=== PATIENT | female | born 1975 | race African-American/Black ===

== ENCOUNTER 2018-01-14 04:07 | Emergency (ER) | payer OTHER ==
[~2018-01-14] VITALS: Ht 149.9 cm; Wt 113.0 kg
[~2018-01-14 04:07] MED LIST: FERR-71 PO
[2018-01-14] MEDS ORDERED: ONDANSETRON HCL 4MG/2ML VIAL IV STA (04:48)
[2018-01-14] MEDS ORDERED: SODIUM CHLORIDE 0.9% 1,000 ML IV ONE (04:48)
[2018-01-14] MEDS ORDERED: MORPHINE SULFATE 4 MG/ML CPJ (NOT FOR IM USE) IV STA (04:48)
[2018-01-14] MEDS ORDERED: KETOROLAC 30MG/ML VIAL IV STA (04:48)
[2018-01-14 05:23] LABS: HEMATOCRIT. 36.8 % (36.0-48.0); HEMOGLOBIN. 11.4 g/dL (12.0-16.0); MEAN CORPUSCULAR HEMOGLOBIN 22.4 pg (28.0-32.0); MEAN CORPUSCULAR VOLUME 71.9 fL (81.0-99.0); MEAN PLATELET VOLUME 8.2 fl (7.4-10.4); PLATELET 290 x1000/uL (130-400); RED BLOOD CELL COUNT 5.11 mill/uL (4.2-5.4); RED CELL DISTRIBUTION WIDTH 16.4 % (11.6-14.6)
[2018-01-14 05:27] LABS: CHLORIDE 101 mEq/L (98-107)
[2018-01-14 05:29] LABS: PROTHROMBIN TIME 10.4 sec (9.4-11.6)
[2018-01-14 05:54] LABS: CLARITY URINE CLOUDY (CLEAR); COLOR URINE YELLOW (YELLOW); KETONES URINE NEGATIVE (NEGATIVE); LEUKOCYTE ESTERASE URINE 3+ (NEGATIVE); NITRITE URINE NEGATIVE (NEGATIVE); OCCULT BLOOD URINE 3+ (NEGATIVE); PH URINE 6.5 (4.5-8.0); PROTEIN URINE 2+ (NEGATIVE); SPECIFIC GRAVITY URINE 1.013 (1.005-1.030)
[2018-01-14 05:55] LABS: PLATELET ESTIMATE NORMAL
[2018-01-14 06:48] VITALS: BP 115/67
== END 2018-01-14 06:50 | disposition home or self-care (01) ==
LOC: ER 04:07
DX: N39.0 Urinary tract infection, site not specified (principal); M54.5 Low back pain; I11.0 Hypertensive heart disease with heart failure; I50.9 Heart failure, unspecified; R73.9 Hyperglycemia, unspecified; Z90.49 Acquired absence of other specified parts of digestive tract
CPT/HCPCS: 36415; 80053; 81003; 81025; 83690; 85025; 85610; 87086; 96361; 96374; 96375; 99284; J1885; J2270; J2405; J7030; Z7610

== ENCOUNTER 2018-09-07 05:32 | Emergency (ER) | payer OTHER ==
[~2018-09-07] VITALS: Ht 162.6 cm; Wt 125.0 kg
[2018-09-07] MEDS ORDERED: KETOROLAC 30MG/ML VIAL IV STA (06:32)
[2018-09-07 07:10] LABS: BASOPHILS % 0.5 % (0.0-2.0); EOSINOPHILS % 1.9 % (0.0-5.0); HEMATOCRIT. 35.2 % (36.0-48.0); HEMOGLOBIN. 10.8 g/dL (12.0-16.0); LYMPHOCYTES % 11.5 % (20.0-50.0); MEAN CORPUSCULAR HEMOGLOBIN 21.4 pg (28.0-32.0); MEAN CORPUSCULAR VOLUME 69.6 fL (81.0-99.0); MEAN PLATELET VOLUME 8.2 fl (7.4-10.4); MONOCYTES % 3.9 % (2.0-8.0); NEUTROPHILS % 82.2 % (40.0-76.0); PLATELET 260 x1000/uL (130-400); RED BLOOD CELL COUNT 5.05 mill/uL (4.2-5.4)
[2018-09-07 07:16] LABS: CHLORIDE 104 mEq/L (98-107)
[2018-09-07 07:17] LABS: PROTHROMBIN TIME 9.9 sec (9.1-11.1)
[2018-09-07 08:42] LABS: PLATELET ESTIMATE NORMAL
[2018-09-07 08:46] LABS: CLARITY URINE CLEAR (CLEAR); COLOR URINE YELLOW (YELLOW); KETONES URINE NEGATIVE (NEGATIVE); NITRITE URINE NEGATIVE (NEGATIVE); OCCULT BLOOD URINE NEGATIVE (NEGATIVE); PH URINE 6.5 (4.5-8.0); PROTEIN URINE NEGATIVE (NEGATIVE); SPECIFIC GRAVITY URINE 1.015 (1.005-1.030)
[2018-09-07 08:47] LABS: LEUKOCYTE ESTERASE URINE NEGATIVE (NEGATIVE); UROBILINOGEN URINE 0.2 E.U./dL (0.2-1.0)
[2018-09-07 10:41] VITALS: BP 122/55
== END 2018-09-07 10:47 | disposition home or self-care (01) ==
LOC: ER 05:32
DX: R10.30 Lower abdominal pain, unspecified (principal); I50.9 Heart failure, unspecified; Z87.442 Personal history of urinary calculi; Z79.899 Other long term (current) drug therapy
CPT/HCPCS: 36415; 74176; 80053; 81003; 83690; 84484; 85025; 85610; 93005; 96374; 99284; J1885

== ENCOUNTER 2018-10-05 14:15 | Emergency (ER) | payer OTHER ==
[~2018-10-05] VITALS: Ht 152.4 cm; Wt 92.0 kg
[2018-10-05] MEDS ORDERED: ASPIRIN 81MG TABLET PO ONE (15:30)
[2018-10-05] MEDS ORDERED: FUROSEMIDE 40MG/4ML VIAL IV ONE (15:30)
[2018-10-05] MEDS ORDERED: NITROGLYCERIN OINT 1GM/INCH UDPKT TD ONE (15:30)
[2018-10-05 16:06] LABS: CHLORIDE 106 mEq/L (98-107)
[2018-10-05 16:08] LABS: HEMOGLOBIN. 10.3 g/dL (12.0-16.0); RED BLOOD CELL COUNT 4.89 mill/uL (4.2-5.4)
[2018-10-05 16:09] LABS: BASOPHILS % 0.3 % (0.0-2.0); HEMATOCRIT. 33.9 % (36.0-48.0); LYMPHOCYTES % 11.2 % (20.0-50.0); MEAN CORPUSCULAR VOLUME 69.5 fL (81.0-99.0); MEAN PLATELET VOLUME 7.6 fl (7.4-10.4); MONOCYTES % 6.1 % (2.0-8.0); NEUTROPHILS % 79.4 % (40.0-76.0); PLATELET 270 x1000/uL (130-400); RED CELL DISTRIBUTION WIDTH 17.5 % (11.6-14.6)
[2018-10-05 16:10] LABS: PARTIAL THROMBOPLASTIN TIME 26.2 sec (23.4-31.0)
[2018-10-05 16:12] LABS: HCG SCREEN NEGATIVE
[2018-10-05 16:33] LABS: PLATELET ESTIMATE NORMAL
[2018-10-05] MEDS ORDERED: IOHEXOL-350 100 ML BOTTLE ONE (19:52)
[2018-10-05] MEDS ORDERED: DIPHENHYDRAMINE 50MG/ML VIAL IV PRN (22:15)
[2018-10-05] MEDS ORDERED: ENOXAPARIN 40MG/0.4ML SYR SUBCUT SCH (22:15)
[2018-10-05] MEDS ORDERED: ONDANSETRON HCL 4MG/2ML INJ IV PRN (22:15)
[2018-10-05] MEDS ORDERED: GUAIFENESIN 200MG/10ML SUGAR FREE UDC PO PRN (22:15)
[2018-10-05] MEDS ORDERED: IPRATROPIUM/ALBUTEROL 0.5-3(2.5)MG/3ML NEB INH PRN (22:15)
[2018-10-05] MEDS ORDERED: CLONIDINE 0.1MG TABLET PO PRN (22:15)
[2018-10-05] MEDS ORDERED: MAGNESIUM/ALUMINUM HYDROXIDE/SIMETHICONE 30ML UDC PO PRN (22:15)
[2018-10-05] MEDS ORDERED: ACETAMINOPHEN 325MG TABLET PO PRN (22:15)
[2018-10-06] MEDS ORDERED: SODIUM CHLORIDE 0.9% INJ 3ML FLUSH IVF SCH ×2 (06:00→13:00)
[2018-10-06] MEDS ORDERED: LISINOPRIL 10MG TABLET PO NR (10:00)
[2018-10-06] MEDS ORDERED: FUROSEMIDE 40MG/4ML VIAL IVP NR (10:00)
[2018-10-06] MEDS ORDERED: AMLODIPINE 5MG TABLET PO NR (10:00)
[2018-10-06] MEDS ORDERED: POTASSIUM CHLORIDE 10MEQ TABLET SR PO NR (10:00)
[2018-10-06 12:31] VITALS: BP 150/107
[2018-10-06] MEDS ORDERED: ENOXAPARIN 40MG/0.4ML SYR SUBCUT SCH (13:00)
[2018-10-07] MEDS ORDERED: FUROSEMIDE 40MG/4ML VIAL IVP SCH ×2 (09:00)
[2018-10-07] MEDS ORDERED: POTASSIUM CHLORIDE 10MEQ TABLET SR PO SCH ×2 (09:00)
[2018-10-07] MEDS ORDERED: AMLODIPINE 5MG TABLET PO SCH ×2 (09:00)
[2018-10-07] MEDS ORDERED: LISINOPRIL 10MG TABLET PO SCH ×2 (09:00)
== END 2018-10-06 12:56 | disposition left against medical advice (07) ==
LOC: ER 14:15 → EDBEDREQ 19:33 → ER 10-06 12:56 → CANBEDREQ 10-06 19:11
DX: I11.0 Hypertensive heart disease with heart failure (principal); I50.43 Acute on chronic combined systolic (congestive) and diastolic (congestive) heart failure; E66.01 Morbid (severe) obesity due to excess calories; Z68.39 Body mass index [BMI] 39.0-39.9, adult
CPT/HCPCS: 36415; 71045; 71275; 80053; 81025; 83880; 84484; 84703; 85025; 85379; 85610; 85730; 93005; 96374; 96375; 96376; 99284; J1200; J1940; Q9967; Z7610

== ENCOUNTER 2019-01-16 18:56 | Inpatient (IN) | payer OTHER ==
[~2019-01-16] VITALS: Ht 149.9 cm; Wt 152.4 kg
[2019-01-16 22:38] LABS: CLARITY URINE CLEAR (CLEAR); COLOR URINE ORANGE (YELLOW); KETONES URINE NEGATIVE (NEGATIVE); LEUKOCYTE ESTERASE URINE 1+ (NEGATIVE); NITRITE URINE NEGATIVE (NEGATIVE); OCCULT BLOOD URINE 3+ (NEGATIVE); PH URINE 7.5 (4.5-8.0); PROTEIN URINE NEGATIVE (NEGATIVE); SPECIFIC GRAVITY URINE 1.011 (1.005-1.030); UROBILINOGEN URINE 0.2 E.U./dL (0.2-1.0)
[2019-01-16] MEDS ORDERED: ONDANSETRON HCL 4MG/2ML INJ IV STA (22:47)
[2019-01-16] MEDS ORDERED: MORPHINE SULFATE 4 MG/ML CPJ (NOT FOR IM USE) IV STA (22:47)
[2019-01-16 23:23] LABS: HEMATOCRIT. 34.3 % (36.0-48.0); HEMOGLOBIN. 10.9 g/dL (12.0-16.0); MEAN CORPUSCULAR HEMOGLOBIN 22.1 pg (28.0-32.0); MEAN CORPUSCULAR VOLUME 69.3 fL (81.0-99.0); MEAN PLATELET VOLUME 7.9 fl (7.4-10.4); PLATELET 241 x1000/uL (130-400); RED BLOOD CELL COUNT 4.95 mill/uL (4.2-5.4); RED CELL DISTRIBUTION WIDTH 17.9 % (11.6-14.6)
[2019-01-16 23:29] LABS: CHLORIDE 105 mEq/L (98-107)
[2019-01-16 23:59] LABS: PLATELET ESTIMATE NORMAL
[2019-01-17] MEDS ORDERED: CEFTRIAXONE 1 G PREMIX 50 ML IV NR (00:15)
[2019-01-17 08:00] VITALS: BP 125/68
[2019-01-17] MEDS ORDERED: DOCUSATE SODIUM 100MG CAPSULE PO PRN (09:00)
[2019-01-17] MEDS ORDERED: CLONIDINE 0.1MG TABLET PO PRN (09:00)
[2019-01-17] MEDS ORDERED: ONDANSETRON HCL 4MG/2ML INJ IV PRN (09:00)
[2019-01-17] MEDS ORDERED: GUAIFENESIN 200MG/10ML SUGAR FREE UDC PO PRN (09:00)
[2019-01-17] MEDS ORDERED: MAGNESIUM/ALUMINUM HYDROXIDE/SIMETHICONE 30ML UDC PO PRN (09:00)
[2019-01-17] MEDS ORDERED: ACETAMINOPHEN 325MG TABLET PO PRN (09:00)
[2019-01-17 09:01] VITALS: BP 112/67
[2019-01-17] MEDS: DIPHENHYDRAMINE 50MG/ML VIAL IV PRN ×2 (09:47→21:37)
[2019-01-17 11:07] LABS: PHOSPHORUS 3.2 mg/dL (2.5-4.9)
[2019-01-17] MEDS: HYDROMORPHONE HCL/PF 2MG/ML CPJ IV PRN ×3 (11:26→21:38)
[2019-01-17] MEDS ORDERED: PNEUMOCOCCAL 23-VAL P-SAC VAC 0.5 ML IM ONE (11:30)
[2019-01-17] MEDS ORDERED: INFLUENZA VIRUS VACCINE(AFLURIA) 0.5ML SYR IM ONE (11:45)
[2019-01-17 12:00] VITALS: BP 143/80
[2019-01-17] MEDS: CEFTRIAXONE 1 G PREMIX 50 ML IV SCH (12:36)
[2019-01-17 12:57] LABS: TOTAL IRON BINDING CAPACITY 418 ug/dL (250-450)
[2019-01-17] MEDS ORDERED: AMLO5TAB88 MT (15:44)
[2019-01-17] MEDS ORDERED: IBUP-2030 MT (15:44)
[2019-01-17] MEDS ORDERED: POTA10CA42 MT (15:44)
[2019-01-17] MEDS ORDERED: LISI10TA5 MT (15:44)
[2019-01-17] MEDS ORDERED: FURO40TA5 MT (15:44)
[2019-01-17 16:00] VITALS: BP 152/63
[2019-01-17 16:40] LABS: CREATINE KINASE MB FRACTION 1.2 ng/mL (0.5-3.6)
[2019-01-18] VITALS: BP 165/87
[2019-01-18 01:10] LABS: CREATINE KINASE MB FRACTION 1.5 ng/mL (0.5-3.6)
[2019-01-18 04:00] VITALS: BP 141/62
[2019-01-18 06:50] LABS: HEMATOCRIT. 34.6 % (36.0-48.0); HEMOGLOBIN. 10.8 g/dL (12.0-16.0); MEAN CORPUSCULAR HEMOGLOBIN 21.8 pg (28.0-32.0); MEAN CORPUSCULAR VOLUME 70.1 fL (81.0-99.0); MEAN PLATELET VOLUME 8.3 fl (7.4-10.4); PLATELET 278 x1000/uL (130-400); RED BLOOD CELL COUNT 4.93 mill/uL (4.2-5.4); RED CELL DISTRIBUTION WIDTH 17.9 % (11.6-14.6)
[2019-01-18 06:51] LABS: CHLORIDE 104 mEq/L (98-107)
[2019-01-18 07:02] LABS: LDL CHOLESTEROL 162 mg/dL (5-100)
[2019-01-18 07:04] LABS: HDL CHOLESTEROL 53 mg/dL (40-59)
[2019-01-18 08:00] VITALS: BP 167/87
[2019-01-18 12:00] VITALS: BP 160/88
[2019-01-18] MEDS: CEFTRIAXONE 1 G PREMIX 50 ML IV SCH (12:32)
[2019-01-18 13:08] LABS: PLATELET ESTIMATE NORMAL
[2019-01-18] MEDS ORDERED: ATOR20TA65 MT (13:13)
[2019-01-18] MEDS ORDERED: LEVO750T46 MT (13:15)
[2019-01-18 14:44] VITALS: BP 125/73
[2019-01-18 15:12] LABS: HCG SCREEN NEGATIVE
== END 2019-01-18 16:16 | disposition home or self-care (01) | DRG 463 ==
LOC: ER 19:22 → 6EST 01-17 04:46 → EDBEDREQ 01-17 04:54 → EDBEDREQTM 01-17 04:54 → ENRESERV 01-17 06:15
PROVIDERS: ADMIT Internal Medicine; ATTEND Internal Medicine
DX: N13.6 Pyonephrosis (principal); I11.0 Hypertensive heart disease with heart failure; E44.0 Moderate protein-calorie malnutrition; R65.10 Systemic inflammatory response syndrome (SIRS) of non-infectious origin without acute organ dysfunction; I50.9 Heart failure, unspecified; Z68.44 Body mass index [BMI] 60.0-69.9, adult; N20.0 Calculus of kidney; R73.9 Hyperglycemia, unspecified; D50.9 Iron deficiency anemia, unspecified; Z87.442 Personal history of urinary calculi; Z79.899 Other long term (current) drug therapy
CPT/HCPCS: 36415; 71045; 74176; 80061; 82550; 82553; 82728; 83036; 83540; 83550; 83735; 83880; 84100; 84443; 84484; 84703; 90686; 90732; 93005; 93970; 96365; 96375; 99285; J0696; J1170; J1200; J2270; J2405

== ENCOUNTER 2019-05-16 16:53 | Emergency (ER) | payer OTHER ==
[~2019-05-16] VITALS: Ht 160 cm; Wt 120.0 kg
[~2019-05-16 16:53] MED LIST changes: +AMLO5TAB88 MT; +ATOR20TA65 MT; +FURO40TA5 MT; +IBUP-2030 MT; +LEVO750T46 MT; +LISI10TA5 MT; +POTA10CA42 MT
[2019-05-16] MEDS ORDERED: ACETAMINOPHEN 325MG TABLET PO STA (18:28)
[2019-05-16] MEDS ORDERED: ASPIRIN 81MG TABLET PO ONE (18:30)
[2019-05-16 19:20] LABS: BASOPHILS % 0.8 % (0.0-2.0); EOSINOPHILS % 2.3 % (0.0-5.0); HEMATOCRIT. 37.4 % (36.0-48.0); HEMOGLOBIN. 11.8 g/dL (12.0-16.0); LYMPHOCYTES % 14.9 % (20.0-50.0); MEAN CORPUSCULAR HEMOGLOBIN 22.1 pg (28.0-32.0); MEAN CORPUSCULAR VOLUME 70.4 fL (81.0-99.0); MEAN PLATELET VOLUME 8.3 fl (7.4-10.4); MONOCYTES % 3.3 % (2.0-8.0); NEUTROPHILS % 78.7 % (40.0-76.0); PLATELET 297 x1000/uL (130-400); RED BLOOD CELL COUNT 5.32 mill/uL (4.2-5.4); RED CELL DISTRIBUTION WIDTH 17.1 % (11.6-14.6)
[2019-05-16 19:25] LABS: CHLORIDE 103 mEq/L (98-107)
[2019-05-16 21:14] VITALS: BP 138/77
== END 2019-05-16 21:15 | disposition home or self-care (01) ==
LOC: ER 16:53
DX: R07.89 Other chest pain (principal); I10 Essential (primary) hypertension
CPT/HCPCS: 36415; 71045; 80053; 84484; 85025; 93005; 99284; Z7610

== ENCOUNTER 2020-07-29 13:46 | Emergency (ER) | payer OTHER ==
[~2020-07-29] VITALS: Ht 162.6 cm; Wt 160.0 kg
[2020-07-29] MEDS ORDERED: FUROSEMIDE 40MG/4ML VIAL IV ONE (14:30)
[2020-07-29] MEDS ORDERED: DEXAMETHASONE 10 MG/ML VIAL IV ONE (14:30)
[2020-07-29] MEDS ORDERED: NITROGLYCERIN OINT 1GM/INCH UDPKT TD ONE (14:30)
[2020-07-29] MEDS ORDERED: CEFTRIAXONE 1 G PREMIX 50 ML IV ONE (14:30)
[2020-07-29] MEDS ORDERED: ASPIRIN 81MG TABLET PO ONE (14:30)
[2020-07-29] MEDS ORDERED: AZITHROMYCIN 500 MG in DEXT 5% WATER 250 ML IV ONE (14:30)
[2020-07-29 15:21] LABS: CHLORIDE 103 mEq/L (98-107)
[2020-07-29 15:27] LABS: HCG SCREEN NEGATIVE
[2020-07-29 15:29] LABS: HEMATOCRIT. 35.6 % (36.0-48.0); MEAN CORPUSCULAR HEMOGLOBIN 20.8 pg (28.0-32.0); MEAN CORPUSCULAR VOLUME 67.5 fL (81.0-99.0); MEAN PLATELET VOLUME 8.3 fl (7.4-10.4); PLATELET 307 x1000/uL (130-400); RED BLOOD CELL COUNT 5.27 mill/uL (4.2-5.4); RED CELL DISTRIBUTION WIDTH 17.7 % (11.6-14.6)
[2020-07-29 15:31] LABS: PARTIAL THROMBOPLASTIN TIME 23.1 sec (23.4-31.0); PROTHROMBIN TIME 10.7 sec (9.6-11.0)
[2020-07-29 16:30] VITALS: BP 135/85
[2020-07-29 17:24] LABS: NUCLEATED RED BLOOD CELLS 2 /100 WBC; PLATELET ESTIMATE NORMAL
[2020-07-29] MEDS ORDERED: CLONIDINE 0.1MG TABLET PO PRN (19:30)
[2020-07-29] MEDS ORDERED: ENOXAPARIN 40MG/0.4ML SYR SUBCUT SCH (19:30)
[2020-07-29] MEDS ORDERED: ACETAMINOPHEN 325MG TABLET PO PRN (19:30)
[2020-07-29] MEDS ORDERED: ONDANSETRON HCL 4MG/2ML INJ IV PRN (19:30)
[2020-07-29] MEDS ORDERED: MAGNESIUM/ALUMINUM HYDROXIDE/SIMETHICONE 30ML UDC PO PRN (19:30)
[2020-07-29] MEDS ORDERED: DOCUSATE SODIUM 100MG CAPSULE PO PRN (19:30)
[2020-07-29] MEDS ORDERED: HYDROCODONE/ACETAMINOPHEN 5/325MG TABLET PO PRN (19:30)
[2020-07-30] MEDS ORDERED: PANTOPRAZOLE SODIUM 40 MG/VIAL IV SCH (09:00)
== END 2020-07-29 19:59 | disposition left against medical advice (07) ==
LOC: ER 13:46 → CANBEDREQ 07-30 15:43
DX: E78.00 Pure hypercholesterolemia, unspecified (principal); I11.0 Hypertensive heart disease with heart failure; I50.9 Heart failure, unspecified; E66.01 Morbid (severe) obesity due to excess calories; Z68.44 Body mass index [BMI] 60.0-69.9, adult; Z79.899 Other long term (current) drug therapy; Z90.49 Acquired absence of other specified parts of digestive tract; Z98.890 Other specified postprocedural states
CPT/HCPCS: 36415; 71045; 80053; 83605; 83880; 84145; 84484; 84703; 85025; 85610; 85730; 87040; 93005; 99285; J0456; J1100; J1940; J7060; Z7610